=== PATIENT | female | born 1940 | race African-American/Black ===

== ENCOUNTER → 2017-06-03 | Outpatient (CLI) | payer MEDICARE, MEDICAID | END | disposition home or self-care (01) | LOC: RAD 10:45 | PROVIDERS: ATTEND Family Medicine | DX: M17.12 Unilateral primary osteoarthritis, left knee (principal) | CPT/HCPCS: 73562 ==

== ENCOUNTER → 2018-02-02 | Outpatient (CLI) | payer MEDICARE, MEDICAID | END | disposition home or self-care (01) | LOC: US 10:10 | PROVIDERS: ATTEND Family Medicine | DX: M79.89 Other specified soft tissue disorders (principal) | CPT/HCPCS: 93971 ==

== ENCOUNTER → 2019-02-14 | Outpatient (CLI) | payer MEDICARE, MEDICAID | END | disposition home or self-care (01) | LOC: RAD 12:15 | PROVIDERS: ATTEND Family Medicine | DX: M17.12 Unilateral primary osteoarthritis, left knee (principal); M11.262 Other chondrocalcinosis, left knee | CPT/HCPCS: 73562 ==

== ENCOUNTER 2022-03-04 13:18 | Emergency (ER) | payer MEDICARE, MEDICAID ==
[~2022-03-04] VITALS: Ht 157.5 cm; Wt 68.0 kg
[2022-03-04 13:22] VITALS: BP 146/68
[2022-03-04] MEDS ORDERED: ONDANSETRON HCL 4MG/2ML INJ IV STA (17:29)
[2022-03-04] MEDS ORDERED: SODIUM CHLORIDE 0.9% 1,000 ML IV ONE (17:30)
[2022-03-04 18:03] LABS: BASOPHILS % 0.4 % (0.0-2.0); EOSINOPHILS % 0.4 % (0.0-5.0); HEMATOCRIT. 37.6 % (36.0-48.0); HEMOGLOBIN. 12.9 g/dL (12.0-16.0); LYMPHOCYTES % 22.2 % (20.0-50.0); MEAN CORPUSCULAR HEMOGLOBIN 31.3 pg (28.0-32.0); MEAN CORPUSCULAR VOLUME 91.5 fL (81.0-99.0); MEAN PLATELET VOLUME 7.8 fl (7.4-10.4); MONOCYTES % 9.8 % (2.0-8.0); NEUTROPHILS % 67.2 % (40.0-76.0); PLATELET 201 x1000/uL (130-400); RED BLOOD CELL COUNT 4.11 mill/uL (4.2-5.4); RED CELL DISTRIBUTION WIDTH 12.8 % (11.6-14.6)
[2022-03-04 18:13] LABS: CHLORIDE 104 mEq/L (98-107)
[2022-03-04 18:39] LABS: CLARITY URINE CLOUDY (CLEAR); COLOR URINE DARK YELLOW (YELLOW); KETONES URINE 1+ (NEGATIVE); LEUKOCYTE ESTERASE URINE 2+ (NEGATIVE); NITRITE URINE NEGATIVE (NEGATIVE); OCCULT BLOOD URINE NEGATIVE (NEGATIVE); PH URINE 5.5 (4.5-8.0); PROTEIN URINE 2+ (NEGATIVE); SPECIFIC GRAVITY URINE 1.026 (1.005-1.030)
[2022-03-04] MEDS ORDERED: NITR-87 MT (19:24)
[2022-03-04] MEDS ORDERED: ONDA4TAB11 PO (19:24)
== END 2022-03-04 19:44 | disposition home or self-care (01) ==
LOC: ER 13:18
DX: R11.2 Nausea with vomiting, unspecified (principal); N39.0 Urinary tract infection, site not specified; I10 Essential (primary) hypertension
CPT/HCPCS: 36415; 80053; 81003; 83690; 85025; 93005; 99284; J7030

== ENCOUNTER 2023-09-27 02:18 | Inpatient (IN) | payer MEDICARE, MEDICAID ==
[~2023-09-27] VITALS: Ht 152.4 cm; Wt 64.9 kg
[~2023-09-27 02:18] MED LIST: NITR-87 MT; ONDA4TAB11 PO
[2023-09-27 03:21] LABS: EOSINOPHILS % 1.9 % (0.0-5.0); HEMATOCRIT. 34.4 % (36.0-48.0); HEMOGLOBIN. 11.8 g/dL (12.0-16.0); LYMPHOCYTES % 36.6 % (20.0-50.0); MEAN CORPUSCULAR HEMOGLOBIN 31.6 pg (28.0-32.0); MEAN CORPUSCULAR HGB CONC 34.4 g/dL (31.0-37.0); MEAN CORPUSCULAR VOLUME 91.8 fL (81.0-99.0); MEAN PLATELET VOLUME 8.5 fl (7.4-10.4); MONOCYTES % 8.6 % (2.0-8.0); NEUTROPHILS % 51.9 % (40.0-76.0); PLATELET 208 x1000/uL (130-400); RED BLOOD CELL COUNT 3.75 mill/uL (4.2-5.4); RED CELL DISTRIBUTION WIDTH 13.3 % (11.6-14.6); WHITE BLOOD COUNT 5.1 x1000/uL (4.5-11.0)
[2023-09-27] MEDS: SODIUM CHLORIDE 0.9% 1,000 ML IV ONE (03:39)
[2023-09-27] MEDS: MORPHINE SULFATE 4 MG/ML CPJ (NOT FOR IM USE) IV STA (03:39)
[2023-09-27] MEDS: ONDANSETRON HCL 4MG/2ML INJ IV STA (03:40)
[2023-09-27 04:32] LABS: ALANINE AMINOTRANSFERASE 13 IU/L (10-49); ALBUMIN 4.5 g/dL (3.2-4.8); ASPARTATE AMINOTRANSFERASE 25 IU/L (<34); BILIRUBIN TOTAL 0.3 mg/dL (0.1-1.0); CALCIUM 9.3 mg/dL (8.7-10.4); CARBON DIOXIDE 28 mEq/L (21-32); CHLORIDE 109 mEq/L (98-107); CREATININE 1.3 mg/dL (0.6-1.0); GLUCOSE 110 mg/dL (70-105); POTASSIUM 3.5 mEq/L (3.5-5.1); PROTEIN TOTAL 7.7 g/dL (6.0-8.3); SODIUM 142 mEq/L (136-145); TROPONIN I HIGH SENSITIVITY 25 ng/L (3.0-34); UREA NITROGEN BLOOD 19 mg/dL (9-23)
[2023-09-27 05:26] LABS: CLARITY URINE CLOUDY (CLEAR); COLOR URINE YELLOW (YELLOW); GLUCOSE URINE NEGATIVE (NEGATIVE); KETONES URINE NEGATIVE (NEGATIVE); LEUKOCYTE ESTERASE URINE NEGATIVE (NEGATIVE); NITRITE URINE NEGATIVE (NEGATIVE); OCCULT BLOOD URINE NEGATIVE (NEGATIVE); PROTEIN URINE NEGATIVE (NEGATIVE); SPECIFIC GRAVITY URINE 1.012 (1.005-1.030); UROBILINOGEN URINE 0.2 E.U./dL (0.2-1.0)
[2023-09-27] MEDS: ASPIRIN 81MG EC TABLET PO ONE (06:00)
[2023-09-27 08:04] LABS: BACTERIA URINE 4+; RBC URINE NONE SEEN /hpf (0-2); WBC URINE 0-2 /hpf (0-2)
[2023-09-27] MEDS ORDERED: IPRATROPIUM/ALBUTEROL 0.5-3(2.5)MG/3ML NEB HHN PRN (09:30)
[2023-09-27] MEDS ORDERED: ACETAMINOPHEN 325MG TABLET PO PRN (09:30)
[2023-09-27] MEDS: DEXT 5%/0.45% NACL 1000ML 1,000 ML IV SCH (09:30)
[2023-09-27] MEDS ORDERED: DOCUSATE SODIUM 100MG CAPSULE PO PRN (09:30)
[2023-09-27] MEDS ORDERED: ONDANSETRON HCL 4MG/2ML INJ IV PRN (09:30)
[2023-09-27 11:06] VITALS: BP 148/77; PULSE 44; RESP 16; TEMP 97.8
[2023-09-27] MEDS: PANTOPRAZOLE SODIUM 40 MG/VIAL IV SCH (11:39)
[2023-09-27] MEDS: HYDRALAZINE 20MG/ML VIAL IV SCH (11:49)
[2023-09-27 12:00] VITALS: BP 182/64; PULSE 46; RESP 15; TEMP 97.2
[2023-09-27 12:20] LABS: PROTHROMBIN TIME 10.9 sec (9.6-11.0)
[2023-09-27 12:37] LABS: FERRITIN 120 ng/mL (10-291); FOLIC ACID (FOLATE) SERUM 11.78 ng/mL (>5.38); TRIOIODOTHYRONINE TOTAL 1.02 ng/ml (0.60-1.81); VITAMIN B12 SERUM 434 pg/mL (211-911)
[2023-09-27] MEDS: HYDRALAZINE HCL 25MG TABLET PO SCH (14:50)
[2023-09-27 15:31] LABS: CHOLESTEROL 175 mg/dL (<200); HDL CHOLESTEROL 47 mg/dL (>65); IRON 65 ug/dL (50-170); LDL CHOLESTEROL 107 mg/dL (5-100); TOTAL IRON BINDING CAPACITY 197 ug/dl (250-425); TRIGLYCERIDE 76 mg/dL (0-150)
[2023-09-27 15:59] LABS: *AMPHETAMINES SCREEN URINE NEGATIVE (NEGATIVE); *BARBITURATES SCREEN URINE NEGATIVE (NEGATIVE); *BENZODIAZEPINES SCREEN URINE NEGATIVE (NEGATIVE); *COCAINE SCREEN URINE NEGATIVE (NEGATIVE); CANNABINOID URINE SCREEN NEGATIVE (NEGATIVE); ECSTASY MDMA SCREEN URINE NEGATIVE (NEGATIVE); METHADONE URINE SCREEN Neg (NEGATIVE); OPIATES URINE SCREEN NEGATIVE (NEGATIVE); PHENCYCLIDINE URINE SCREEN NEGATIVE (NEGATIVE)
[2023-09-27 16:00] VITALS: BP 186/66; PULSE 60; RESP 13; TEMP 97.5
[2023-09-27 16:50] LABS: CREATINE KINASE MB FRACTION 2.2 ng/mL (0.5-3.6)
[2023-09-27] MEDS: ENOXAPARIN 30MG/0.3ML SYR SUBCUT SCH (18:07)
[2023-09-27] MEDS: INFLUENZA VACCINE 05/PF 0.5 ML SYRINGE IM ONE (18:14)
[2023-09-27] MEDS: HYDRALAZINE 20MG/ML VIAL IV PRN (18:21)
[2023-09-27] MEDS: AMLODIPINE 5MG TABLET PO SCH (18:21)
[2023-09-27 20:00] VITALS: BP 163/56; PULSE 61; RESP 19; TEMP 98.1
[2023-09-27] MEDS: ATORVASTATIN CALCIUM 40MG TABLET PO SCH (20:58)
[2023-09-27] MEDS: CEFTRIAXONE 1,000 MG in DEXTROSE 5% WATER 50 ML IV SCH (22:24)
[2023-09-27 23:47] LABS: CREATINE KINASE MB FRACTION 1.6 ng/mL (0.5-3.6)
[2023-09-28] VITALS: BP 157/70; PULSE 76; RESP 20; TEMP 98.1
[2023-09-28 04:00] VITALS: BP 143/57; PULSE 53; RESP 19; TEMP 97.7
[2023-09-28 08:00] VITALS: BP 164/60; PULSE 51; RESP 16; TEMP 97.9
[2023-09-28 12:00] VITALS: BP 151/52; PULSE 54; RESP 15; TEMP 98.1
[2023-09-28 13:06] LABS: BASOPHILS % 0.8 % (0.0-2.0); EOSINOPHILS % 0.8 % (0.0-5.0); HEMATOCRIT. 35.7 % (36.0-48.0); HEMOGLOBIN. 12.1 g/dL (12.0-16.0); LYMPHOCYTES % 29.5 % (20.0-50.0); MEAN CORPUSCULAR HEMOGLOBIN 31.3 pg (28.0-32.0); MEAN CORPUSCULAR VOLUME 92.1 fL (81.0-99.0); NEUTROPHILS % 57.9 % (40.0-76.0); PLATELET 205 x1000/uL (130-400); RED BLOOD CELL COUNT 3.88 mill/uL (4.2-5.4); RED CELL DISTRIBUTION WIDTH 13.5 % (11.6-14.6); WHITE BLOOD COUNT 5.2 x1000/uL (4.5-11.0)
[2023-09-28 13:21] LABS: CREATININE 1.1 mg/dL (0.6-1.0); POTASSIUM 3.3 mEq/L (3.5-5.1)
[2023-09-28 16:00] VITALS: BP 150/49; PULSE 52; RESP 15; TEMP 97.5
[2023-09-28 20:00] VITALS: BP 158/58; PULSE 54; RESP 18; TEMP 98
[2023-09-28] MEDS: ACETAMINOPHEN 325MG TABLET PO PRN (22:32)
[2023-09-29] VITALS: BP 130/46; PULSE 54; RESP 19; TEMP 98.1
[2023-09-29 04:00] VITALS: BP 131/48; PULSE 56; RESP 19; TEMP 97.9
[2023-09-29 08:00] VITALS: BP 134/57; PULSE 57; RESP 17; TEMP 97.9
[2023-09-29] MEDS: FAMOTIDINE 20MG/2ML VIAL IV SCH (08:45)
[2023-09-29 12:00] VITALS: BP 114/60; PULSE 56; RESP 17; TEMP 97.9
[2023-09-29 12:39] VITALS: BP 114/60; PULSE 56; TEMP 97.9; O2SAT 97
== END 2023-09-29 13:40 | disposition home or self-care (01) | DRG 392 ==
LOC: ER 02:18 → 7EST 05:46 → EDBEDREQ 06:00
PROVIDERS: ADMIT Internal Medicine Nephrology; ATTEND Internal Medicine Nephrology
DX: K52.9 Noninfective gastroenteritis and colitis, unspecified (principal); I31.39 Other pericardial effusion (noninflammatory); N17.9 Acute kidney failure, unspecified; D64.9 Anemia, unspecified; I10 Essential (primary) hypertension; E78.5 Hyperlipidemia, unspecified; M48.02 Spinal stenosis, cervical region; M48.061 Spinal stenosis, lumbar region without neurogenic claudication; M48.04 Spinal stenosis, thoracic region; M43.6 Torticollis; Z90.710 Acquired absence of both cervix and uterus; Z79.899 Other long term (current) drug therapy
CPT/HCPCS: 36415; 71045; 72141; 72146; 72148; 74176; 76770; 80048; 80053; 80061; 80305; 81003; 82550; 82553; 82607; 82728; 82746; 82962; 83036; 83540; 83550; 84443; 84480; 84484; 85025; 90686; 93005; 93306; 97110; 97116; 97162; 97530; 99285; C1893; C9113; J0360; J0696; J1650; J2405; J3490; J7030; J7060